=== PATIENT | female | born 1950 | race African-American/Black ===

== ENCOUNTER 2020-05-26 02:16 | Inpatient (IN) | payer OTHER, MEDICAID ==
[~2020-05-26] VITALS: Ht 168.7 cm; Wt 113.4 kg
[~2020-05-26 02:16] MED LIST: CLON1TAB PO; DIAZ2TAB PO
[2020-05-26] MEDS ORDERED: MORPHINE SULFATE 10 MG/ML CPJ IM ONE (03:45)
[2020-05-26 04:20] LABS: BASOPHILS % 0.5 % (0.0-2.0); HEMATOCRIT. 26.8 % (36.0-48.0); HEMOGLOBIN. 8.9 g/dL (12.0-16.0); LYMPHOCYTES % 7.9 % (20.0-50.0); MEAN CORPUSCULAR HEMOGLOBIN 29.8 pg (28.0-32.0); MEAN CORPUSCULAR VOLUME 89.9 fL (81.0-99.0); MEAN PLATELET VOLUME 7.7 fl (7.4-10.4); MONOCYTES % 8.3 % (2.0-8.0); NEUTROPHILS % 82.3 % (40.0-76.0); PLATELET 66 x1000/uL (130-400); RED BLOOD CELL COUNT 2.98 mill/uL (4.2-5.4); RED CELL DISTRIBUTION WIDTH 16.6 % (11.6-14.6)
[2020-05-26 04:21] LABS: CHLORIDE 111 mEq/L (98-107)
[2020-05-26 04:25] LABS: INR 1.1; PROTHROMBIN TIME 11.6 sec (9.6-11.0)
[2020-05-26 04:40] LABS: CLARITY URINE TURBID (CLEAR); COLOR URINE YELLOW (YELLOW); KETONES URINE NEGATIVE (NEGATIVE); LEUKOCYTE ESTERASE URINE TRACE (NEGATIVE); NITRITE URINE NEGATIVE (NEGATIVE); OCCULT BLOOD URINE TRACE (NEGATIVE); PROTEIN URINE 3+ (NEGATIVE); SPECIFIC GRAVITY URINE 1.019 (1.005-1.030)
[2020-05-26] MEDS ORDERED: SODIUM CHLORIDE 0.9% 1,000 ML IV ONE (05:30)
[2020-05-26] MEDS ORDERED: FUROSEMIDE 40MG TABLET PO ONE (06:15)
[2020-05-26] MEDS ORDERED: CEFTRIAXONE 1 G PREMIX 50 ML IV ONE (06:15)
[2020-05-26] MEDS ORDERED: ASPIRIN 325MG EC TABLET PO ONE (06:15)
[2020-05-26 09:20] VITALS: BP 169/74
[2020-05-26 09:30] VITALS: BP 169/74
[2020-05-26 12:18] VITALS: BP 152/52
[2020-05-26] MEDS ORDERED: PIPERACILLIN/TAZ 3.375G PREMIX 50 ML IV SCH (13:00)
[2020-05-26] MEDS ORDERED: NA PHOS,M-B/NA PHOS,DI-BA ENEMA 118ML PR PRN (13:00)
[2020-05-26] MEDS ORDERED: ACETAMINOPHEN 325MG TABLET PO PRN (13:00)
[2020-05-26] MEDS ORDERED: IPRATROPIUM/ALBUTEROL 0.5-3(2.5)MG/3ML NEB NEB PRN (13:00)
[2020-05-26] MEDS ORDERED: ONDANSETRON HCL 4MG/2ML INJ IV PRN (13:00)
[2020-05-26] MEDS ORDERED: MAGNESIUM/ALUMINUM HYDROXIDE/SIMETHICONE 30ML UDC PO PRN (13:00)
[2020-05-26] MEDS ORDERED: ACETAMINOPHEN 650MG SUPP PR PRN (13:00)
[2020-05-26] MEDS ORDERED: PIPERACILLIN/TAZOBACTAM 3.375 G in DEXT 5% WATER 100 ML IV SCH (14:00)
[2020-05-26 15:23] LABS: BASOPHILS % 0.7 % (0.0-2.0); EOSINOPHILS % 0.8 % (0.0-5.0); HEMATOCRIT. 23.8 % (36.0-48.0); HEMOGLOBIN. 8.1 g/dL (12.0-16.0); LYMPHOCYTES % 11.4 % (20.0-50.0); MEAN CORPUSCULAR HEMOGLOBIN 30.5 pg (28.0-32.0); MEAN CORPUSCULAR VOLUME 89.9 fL (81.0-99.0); MONOCYTES % 8.8 % (2.0-8.0); NEUTROPHILS % 78.3 % (40.0-76.0); PLATELET 62 x1000/uL (130-400); RED BLOOD CELL COUNT 2.64 mill/uL (4.2-5.4); RED CELL DISTRIBUTION WIDTH 16.6 % (11.6-14.6)
[2020-05-26 15:29] LABS: CHLORIDE 112 mEq/L (98-107)
[2020-05-26 16:08] VITALS: BP 154/63
[2020-05-26] MEDS ORDERED: LACTULOSE 20G/30ML UDC PO NR (16:15)
[2020-05-26 17:04] LABS: HEPATITIS B SURFACE ANTIGEN NEGATIVE
[2020-05-26] MEDS: FUROSEMIDE 40MG/4ML VIAL IVP SCH (17:07)
[2020-05-26 18:33] LABS: HEPATITIS A AB IGM Equiv (NEGATIVE)
[2020-05-26 20:49] VITALS: BP 172/88
[2020-05-26 20:50] VITALS: BP 188/90
[2020-05-26] MEDS: PIPERACILLIN/TAZOBACTAM 2.25 G in DEXTROSE 5% WATER 50 ML IV SCH (21:06)
[2020-05-26] MEDS: CLONIDINE 0.1MG TABLET PO PRN (21:07)
[2020-05-26] MEDS: HYDROCODONE/ACETAMINOPHEN 5/325MG TABLET PO PRN (21:07)
[2020-05-26] MEDS: LACTULOSE 20G/30ML UDC PO SCH (21:08)
[2020-05-26] MEDS: PROPRANOLOL HCL 10MG TABLET PO SCH (21:08)
[2020-05-26 21:27] LABS: HEMATOCRIT 24.2 % (36.0-48.0); HEMOGLOBIN 8.2 g/dL (12.0-16.0)
[2020-05-26] MEDS: LORAZEPAM 0.5MG TABLET PO PRN (22:25)
[2020-05-27] VITALS (7 sets, daily range): BP systolic 118–178; BP diastolic 65–82
[2020-05-27] MEDS: HYDROCODONE/ACETAMINOPHEN 5/325MG TABLET PO PRN ×3 (01:12→21:46)
[2020-05-27] MEDS: PIPERACILLIN/TAZOBACTAM 2.25 G in DEXTROSE 5% WATER 50 ML IV SCH ×4 (01:12→17:25)
[2020-05-27] MEDS: LORAZEPAM 0.5MG TABLET PO PRN (04:04)
[2020-05-27] MEDS: LACTULOSE 20G/30ML UDC PO SCH ×3 (05:39→21:03)
[2020-05-27] MEDS: FUROSEMIDE 40MG/4ML VIAL IVP SCH ×2 (09:00→09:25)
[2020-05-27] MEDS: PANTOPRAZOLE SODIUM 40 MG/VIAL IV SCH (09:25)
[2020-05-27] MEDS: RISPERIDONE 0.5MG TABLET PO SCH ×2 (09:26→17:18)
[2020-05-27] MEDS: PROPRANOLOL HCL 10MG TABLET PO SCH ×2 (09:26→20:49)
[2020-05-27] MEDS: CLONIDINE 0.1MG TABLET PO PRN (09:26)
[2020-05-27 09:50] LABS: BASOPHILS % 0.2 % (0.0-2.0); EOSINOPHILS % 1.3 % (0.0-5.0); HEMATOCRIT. 26.2 % (36.0-48.0); HEMOGLOBIN. 8.8 g/dL (12.0-16.0); LYMPHOCYTES % 11.3 % (20.0-50.0); MEAN CORPUSCULAR HEMOGLOBIN 30.3 pg (28.0-32.0); MEAN CORPUSCULAR VOLUME 90.5 fL (81.0-99.0); MEAN PLATELET VOLUME 7.4 fl (7.4-10.4); MONOCYTES % 8.1 % (2.0-8.0); NEUTROPHILS % 79.1 % (40.0-76.0); PLATELET 65 x1000/uL (130-400); RED BLOOD CELL COUNT 2.89 mill/uL (4.2-5.4); RED CELL DISTRIBUTION WIDTH 16.7 % (11.6-14.6)
[2020-05-27 09:58] LABS: CHLORIDE 113 mEq/L (98-107)
[2020-05-27 10:06] LABS: LDL CHOLESTEROL 52 mg/dL (5-100)
[2020-05-27 10:07] LABS: HDL CHOLESTEROL 30 mg/dL (40-59); TOTAL IRON BINDING CAPACITY 309 ug/dL (250-450)
[2020-05-27 10:08] LABS: T4 FREE 1.09 ng/dL (0.76-1.46)
[2020-05-27] MEDS ORDERED: LIDOCAINE HCL 1% 20ML VIAL (Pyxis) INJ ONE (10:23)
[2020-05-27] MEDS ORDERED: SODIUM BICARBONATE 4% (2.4MEQ) 5ML VIAL IV ONE (10:24)
[2020-05-27 10:33] LABS: FOLIC ACID (FOLATE) SERUM 9.2 ng/mL (>5.38)
[2020-05-28] VITALS (7 sets, daily range): BP systolic 111–156; BP diastolic 50–87
[2020-05-28] MEDS: PIPERACILLIN/TAZOBACTAM 2.25 G in DEXTROSE 5% WATER 50 ML IV SCH ×4 (00:01→18:00)
[2020-05-28] MEDS: LACTULOSE 20G/30ML UDC PO SCH ×3 (05:20→22:00)
[2020-05-28] MEDS: RISPERIDONE 0.5MG TABLET PO SCH ×2 (08:54→18:08)
[2020-05-28] MEDS: FUROSEMIDE 40MG/4ML VIAL IVP SCH (08:54)
[2020-05-28] MEDS: PROPRANOLOL HCL 10MG TABLET PO SCH ×2 (08:54→21:00)
[2020-05-28] MEDS: PANTOPRAZOLE SODIUM 40 MG/VIAL IV SCH (08:54)
[2020-05-28 12:09] LABS: BASOPHILS % 0.6 % (0.0-2.0); EOSINOPHILS % 4.3 % (0.0-5.0); HEMATOCRIT. 27.7 % (36.0-48.0); HEMOGLOBIN. 9.4 g/dL (12.0-16.0); LYMPHOCYTES % 18.2 % (20.0-50.0); MEAN CORPUSCULAR HEMOGLOBIN 30.4 pg (28.0-32.0); MEAN PLATELET VOLUME 7.2 fl (7.4-10.4); MONOCYTES % 11.9 % (2.0-8.0); PLATELET 76 x1000/uL (130-400); RED BLOOD CELL COUNT 3.08 mill/uL (4.2-5.4); RED CELL DISTRIBUTION WIDTH 16.6 % (11.6-14.6)
[2020-05-28 12:20] LABS: CHLORIDE 111 mEq/L (98-107)
[2020-05-28] MEDS ORDERED: FURO-151 MT (15:14)
[2020-05-28] MEDS ORDERED: PROP10TA10 MT (15:14)
[2020-05-28] MEDS ORDERED: LACT10SO MT (15:14)
[2020-05-28] MEDS ORDERED: PROT40 MT (15:14)
[2020-05-28] MEDS ORDERED: LEVO500T2 PO (15:19)
== END 2020-05-29 00:28 | disposition home or self-care (01) | DRG 432 ==
LOC: ER 02:16 → 6WST 06:05 → ENRESERV 07:31
PROVIDERS: ADMIT Internal Medicine; ATTEND Internal Medicine
PROC: 0W9G3ZZ Drainage of Peritoneal Cavity, Percutaneous Approach (ICD-10-PCS; principal; 2020-05-27)
DX: K74.60 Unspecified cirrhosis of liver (principal); K76.7 Hepatorenal syndrome; I50.41 Acute combined systolic (congestive) and diastolic (congestive) heart failure; G93.40 Encephalopathy, unspecified; R18.8 Other ascites; K76.6 Portal hypertension; I13.0 Hypertensive heart and chronic kidney disease with heart failure and stage 1 through stage 4 chronic kidney disease, or unspecified chronic kidney disease; D61.818 Other pancytopenia; E72.20 Disorder of urea cycle metabolism, unspecified; I31.3 Pericardial effusion (noninflammatory); N39.0 Urinary tract infection, site not specified; K64.8 Other hemorrhoids; K62.3 Rectal prolapse; G40.909 Epilepsy, unspecified, not intractable, without status epilepticus; E11.22 Type 2 diabetes mellitus with diabetic chronic kidney disease; M48.061 Spinal stenosis, lumbar region without neurogenic claudication; M43.16 Spondylolisthesis, lumbar region; N18.9 Chronic kidney disease, unspecified; Z90.5 Acquired absence of kidney; R26.89 Other abnormalities of gait and mobility; I27.20 Pulmonary hypertension, unspecified; B19.20 Unspecified viral hepatitis C without hepatic coma; B96.1 Klebsiella pneumoniae [K. pneumoniae] as the cause of diseases classified elsewhere; E86.0 Dehydration; M47.816 Spondylosis without myelopathy or radiculopathy, lumbar region; I34.0 Nonrheumatic mitral (valve) insufficiency; K59.00 Constipation, unspecified; F17.200 Nicotine dependence, unspecified, uncomplicated; Z79.899 Other long term (current) drug therapy; Z86.73 Personal history of transient ischemic attack (TIA), and cerebral infarction without residual deficits
CPT/HCPCS: 36415; 49083; 71045; 74176; 76705; 80048; 80053; 80061; 81003; 82105; 82140; 82607; 82728; 82746; 83540; 83550; 83880; 84439; 84443; 84484; 85014; 85018; 85025; 86705; 86709; 86803; 86850; 86900; 87077; 87186; 87340; 87426; 93005; 93306; 93970; 96374; 97116; 97162; 97530; 99291; C9113; J0696; J1940; J2270; J2543; J3490; J7030; J7060